=== PATIENT | female | born 1990 | race Caucasian/White ===

== ENCOUNTER 2017-08-30 13:50 | Emergency (ER) | payer OTHER, MEDICAID ==
[2017-08-30] MEDS: DIPHENHYDRAMINE 50 MG INJ IV (15:01)
[2017-08-30] MEDS: METOCLOPRAMIDE 10 MG INJ IV (15:01)
[2017-08-30] MEDS: SOD CHLORIDE 0.9% 1,000 ML IV (15:01)
[2017-08-30] MEDS: KETOROLAC 30 MG INJ IV (16:21)
== END 2017-08-30 17:14 | disposition home or self-care (01) ==
LOC: FTE 13:50
DX: R51 Headache (principal)
CPT/HCPCS: 81025; 96361; 96374; 96375; 99284-25